=== PATIENT | female | born 1970 | race Caucasian/White ===

== ENCOUNTER → 2017-05-17 | Day surgery (SDC) | payer BC ==
[2017-05-17 08:13] VITALS: RESP 16; BMI 27.4
--- NOTE | 2017-05-17 11:11 | MM ---
Procedure: Ultrasound-guided core biopsy, postprocedure mammogram Date of exam 05/17/2017 TECHNIQUE: 2 views bilateral breasts craniocaudal and mediolateral oblique views. FINDINGS: Surgical clip is in the 12:00 position of the left breast. Ribbon clip is present at this l ocation. Spring coil is present within the 4:00 position right breast. There is dense parenchymal tissue covering two thirds of the breast. IMPRESSIONS: 1. Successful postsurgical clip placement.
--- NOTE | 2017-05-17 22:54 | USB ---
EXAMINATION TYPE: US biopsy breast VAD LT DATE OF EXAM: 05/17/2017 CLINICAL HISTORY: R92.8 Abnormal mammo. TECHNIQUE: Ultrasound guided core biopsy of bilateral breasts. COMPARISON: Outside ultrasound dated 05/01/2017. FINDINGS: The procedure of ultrasound guided core biopsy was explained to the patient. Benefits, alternatives, and risks were discussed. An informed consent was then obtained. A timeout was performed. The patient was placed in supine positioning for imaging and for the procedure. Left breast lesion was again identified. The overlying skin was prepped and draped in usual sterile fashion. Lidocaine was used as anesthetic into the skin and subcutaneous tissue up to area of concern in the left breast. A jm was made with surgical scalpel. Under ultrasound guidance, a 12-gauge vacuum assisted biopsy gun device was used to obtain 6 core samples. Following this, a biopsy clip was left in lesion. Utilizing a separate sterile set up the right breast biopsy was performed. . Right breast lesion was identified The overlying skin was prepped and draped in usual sterile fashion. Lidocaine was used as anesthetic into the skin and subcutaneous tissue up to area of concern in the right breast. A jm was made with surgical scalpel. Under ultrasound guidance, a 12-gauge vacuum assisted biopsy gun device was used to obtain 6 core samples. Following this, a biopsy clip was left in lesion. The patient tolerated the procedure well without any immediate complication. The patient was kept in the radiology department for short stay after the procedure and then discharged home in stable condition. Postprocedure mammogram ordered by the physician was performed. Clips are present within the bilateral breasts. IMPRESSION: 1. Successful core biopsy left breast 11:00 lesion. 2. Successful core biopsy right breast 4:00 lesion. IMPRESSION: Successful, uncomplicated ultrasound guided core biopsy of area of concern in the breast, full pathology results to follow. Pathology Result: High Risk A. BREAST, LEFT, 11:00, CORE BIOPSY: FIBROEPITHELIAL LESION, FAVOR FIBROADENOMA. SEE NOTE. B. BREAST, RIGHT, 4:00, CORE BIOPSY: FIBROADENOMA. Notes While fibroadenoma is favored in part A, given a somewhat prominent stromal component the possibility of a phyllodes tumor cannot be entirely excluded. Recommend clinical and imaging study correlation with follow up as indicated . Recommendation Surgical consult of the left breast. (see pathology note) ARTHUR
[2017-05-21 12:12] VITALS: BP 149/83; PULSE 90; TEMP 97.6
== END ==
LOC: RADUSWWP 07:49
PROVIDERS: ATTEND Surgery
DX: D24.1 Benign neoplasm of right breast (principal); N64.9 Disorder of breast, unspecified
CPT/HCPCS: 88305; 19083; 19084; G0204; A4648; J2001